=== PATIENT | female | born 1935 | race Caucasian/White ===

== ENCOUNTER 2017-08-14 14:53 | Emergency (ER) | payer OTHER ==
--- NOTE | 2017-08-14 15:03 | PDOC ---
History of Present Illness - General Stated Complaint: FALL Time Seen by Provider: 08/14/17 15:03 - History of Present Illness Initial Comments: 81 year old female with PMH of HTN and metastatic breast cancer (recently found in the liver) presenting with nose pain and bleeding after a fall from her chair. She says that she was playing solitaire on her computer and may have been feeling a little bit tired. The next thing she remembers is that she was falling from her chair and wasn't able to brace her fall to prevent herself from injuring her face. She felt a strange sensation at the bridge of her nose and immediately started bleeding. She isn't sure how she fell but denies any chest pain, palpitations, lightheadedness, nausea vomiting, diarrhea, urinary symptoms, or any other symptoms. 08/14/17 17:30 Past History - Past Medical History Allergies/Adverse Reactions: Allergies Allergy/AdvReac Type Severity Reaction Status Date / Time No Known Allergies Allergy Verified 08/14/17 15:26 Home Medications: Ambulatory Orders Amoxicillin/Potassium Clav [Augmentin 875-125 Tablet] 1 each PO BID #14 tablet 08/15/17 Review of Systems - Review of Systems Constitutional: No: Chills, Diaphoresis, Fever HEENTM: No: Blurred Vision Respiratory: No: Cough, Shortness of Breath, Hemoptysis Cardiac (ROS): No: Chest Pain, Edema, Lightheadedness, Syncope, Chest Tightness ABD/GI: No: Constipated, Diarrhea, Nausea, Vomiting : No: Burning, Dysuria, Discharge, Hematuria Musculoskeletal: Yes: Joint Pain. No: Back Pain, Muscle Weakness Integumentary: No: Bruising, Erythema, Flushing, Lesions Neurological: No: Headache, Numbness Psychiatric: No: Anxiety, Depression *Physical Exam - Physical Exam General Appearance: Yes: Nourished, Appropriately Dressed. No: Apparent Distress HEENT: positive: EOMI, JUAN, Lesions (obvious bruising around the area of abrasion), Tuttle. negative: Normal ENT Inspection (small abrasion across the nasal ridge wiuthout any foreign bodies or obvious osseous stucture protruding through the lesion. Most likely superficial. Slight depression with crepitus on the right superior aspect of the nasal ridge. No gross deformity of the nose.) Neck: positive: Trachea midline, Normal Thyroid, Supple. negative: Tender, Rigid Respiratory/Chest: positive: Lungs Clear, Normal Breath Sounds. negative: Chest Tender, Respiratory Distress, Accessory Muscle Use Cardiovascular: positive: Regular Rhythm, Regular Rate, S1, S2. negative: Edema , Murmur Gastrointestinal/Abdominal: positive: Normal Bowel Sounds, Flat, Soft. negative : Tender Musculoskeletal: positive: Normal Inspection. negative: CVA Tenderness Extremity: positive: Normal Capillary Refill, Normal Inspection. negative: Tender Integumentary: positive: Normal Color, Dry, Warm, Ecchymosis (Per above) Neurologic: positive: historical guide II-XII NML intact, Fully Oriented, Alert, Normal Mood/ Affect, Normal Response, Motor Strength 5/5 Procedures - Laceration/Wound Repair Right Nose Wound Length: to 2.5 cm Wound Explored: clean, no foreign body present Wound's Depth, Shape: superficial Irrigated w/ Saline: Yes Betadine Prep: No Wound Repaired With: Steri-strips Sterile Dressing Applied: No Splint Applied: No Progress: Superficial abrasion / partial laceration with echymosses and erythema. No swelling or obvious bone visualized through the wound. 08/16/17 07:27 ED Treatment Course - LABORATORY CBC & Chemistry Diagram: 08/14/17 15:55 08/14/17 15:55 Medical Decision Making - Medical Decision Making 81 year old female with PMH of metastatic breast cancer presenting with nasal deformity and abrasion after falling asleep at her desk and falling off of her chair. CT head was negative for any intracranial lesion or mass occupying lesion. Facial bone CT significant for fracture of the nasal septum and nasal bone tip but minimally displaced. Orbital sockets in tact. Abrasions cleaned, steri-stripped, and patient sent home with augmentin (one dose given here) and return precautions. 08/14/17 20:05 *DC/Admit/Observation/Transfer Diagnosis at time of Disposition: Nasal bone fracture Qualifiers: Encounter type: initial encounter Fracture type: closed Qualified Code(s): S02.2XXA - Fracture of nasal bones, initial encounter for closed fracture - Discharge Dispostion Disposition: HOME Condition at time of disposition: Improved Admit: No - Referrals Referrals: Jeannie Roque [Primary Care Provider] - - Patient Instructions Additional Instructions: You were seen for a fall on your face with an injury to your nose. Our CT scan showed a break of your nasal bone. There was no head bleed. Please follow up with your primary care physician within 2 days to have the nose looked at. Your steri-strips will fall off on their own. Please keep the area dry for 24 hours then you can start to clean it gently with warm water after that. If you have further nose bleeding please pinch the back of your nose and tilt your head forward. If you have any visual changes, worsening headache that does not resolve without Tylenol, uncontrollable nausea, uncontrollable vomiting, difficulty speaking, weakness in any of your limbs, excessive sleepiness, or any other concerning symptoms please return to the ED immediately.
[2017-08-14 15:28] VITALS: BMI 24.2
--- NOTE | 2017-08-14 15:56 | PDOC ---
Attending Attestation - Resident Resident Name: Henry Olivas - ED Attending Attestation I have performed the following: I have examined & evaluated the patient, The case was reviewed & discussed with the resident, I agree w/resident's findings & plan, Exceptions are as noted - HPI HPI: 08/14/17 17:50 81 years old with past medical history significant for metastatic lung CA presents to the emergency Department after sliding off a chair while seated at home playing a computer game landed face first sustaining injury to her nose. Patient denies taking any blood thinners. Complaining of pain to the bridge of her nose no other injuries sustained in fall pain is mild to moderate persistent constant no exacerbating or alleviating factors. - Physicial Exam PE: 08/14/17 17:51 Vitals: Triage Vital signs reviewed General Appearance: no acute distress, well nourished well developed, Head: Swelling and ecchymosis to bridge of nose small abrasion/laceration to bridge of nose. Eyes: Pupils equal reactive round, extraocular movement intact Ears: TM's normal bilaterally; Nose: Nares patent bilaterally;no nasal congestion Throat: Posterior oropharynx without erythema, mucous membranes moist, Neck: Supple;No Nucal rigidity Chest Wall: Nontender Cardiac: Regular rate and rhythym, no murmurs, no rubs, no gallops, Lungs: Clear to auscultation bilateral, good air movement bilaterally, Abdomen: Soft, non distended, normal bowel sounds, non tender to palpation Extremities: Full range of motion to all extremities, no cyanosis, clubbing, or edema Skin: Warm and dry, no rashes or lesions, no rash, no petechiae Neuro: AOX3; Cranial Nerves 2-12 grossly intact, Strength intact to all extremities, Sensation intact to all extremities,gait normal Psych: normal mood, normal affect - Medical Decision Making 08/14/17 17:50 She has a normal neurologic examination In the emergency department we have checked her blood work EKG a head CT and facial bone CT She has sustained a nasal bone fracture. Given a slight abrasion/laceration to the bridge of her nose she was placed on Augmentin. She is well-appearing lives [facility] a [facility] with other n[facility]. We advise observation. For the patient but she would prefer to return home she will follow-up with her doctor on Wednesday Strict head injury precautions discussed with patient. Patient is returning home to the [facility] where there is a nurse there to help care for her this evening. Findings, the need for follow-up and strict return instructions discussed with 08/14/17 20:32
[2017-08-14 16:11] LABS: BASOPHIL 0.4 % (0-2.0); EOSINOPHIL 0.5 % (0-4.5); MCH 30.7 pg (25.7-33.7); MCHC 33.8 g/dl (32.0-36.0); MEAN CELL VOLUME 90.9 fl (80-96); MEAN PLT VOLUME 8.5 fl (7.5-11.1); NEUTROPHILS 77.5 % (42.8-82.8); PLATELET COUNT 256 K/MM3 (134-434); RDW 13.9 % (11.6-15.6); WHITE BLOOD COUNT 7.2 K/mm3 (4.0-10.0)
[2017-08-14 16:35] LABS: ALBUMIN 3.9 g/dl (3.4-5.0); ANION GAP 8 (8-16); BILIRUBIN,TOTAL 0.6 mg/dL (0.2-1.0); CALCIUM 9.6 mg/dL (8.5-10.1); CO2 29 mmol/L (21-32); CREATININE 0.9 mg/dL (0.55-1.02); GLUCOSE,RANDOM 124 mg/dL (74-106); SGOT/AST 16 U/L (15-37); SGPT/ALT 22 U/L (12-78); TOT PROT 6.8 g/dl (6.4-8.2)
[2017-08-14 16:39] LABS: ALK PHOS 74 U/L (45-117); CPK 131 IU/L (26-192); TROPONIN I < 0.02 ng/ml (0.00-0.05)
[2017-08-14 18:18] LABS: URINE APPEARANCE CLEAR; URINE BILIRUBIN NEGATIVE (NEGATIVE); URINE BLOOD NEGATIVE (NEGATIVE); URINE COLOR YELLOW; URINE GLUCOSE (UA) 1+ (NEGATIVE); URINE KETONE NEGATIVE (NEGATIVE); URINE NITRITE NEGATIVE (NEGATIVE); URINE PROTEIN NEGATIVE (NEGATIVE); URINE UROBILINOGEN NEGATIVE mg/dL (0.2-1.0)
[2017-08-14] MEDS ORDERED: AMOX TR/POT CLAV 875MG/125MG TABLETS (FP) PO ONE (20:07)
[2017-08-14] MEDS ORDERED: AMOX TR/POT CLAV 875MG/125MG TABLETS (FP) ONE (20:37)
[2017-08-14 20:45] VITALS: BP 161/63; PULSE 91; TEMP 97.8
[2017-08-14 22:23] LABS: URINE LEUK ESTERASE TRACE (NEGATIVE)
--- NOTE | 2017-08-15 09:04 | EKG ---
Test Reason : Blood Pressure : / mmHG Vent. Rate : 087 BPM Atrial Rate : 087 BPM P-R Int : 170 ms QRS Dur : 094 ms QT Int : 368 ms P-R-T Axes : 044 038 066 degrees QTc Int : 442 ms POOR DATA QUALITY, INTERPRETATION MAY BE ADVERSELY AFFECTED NORMAL SINUS RHYTHM POSSIBLE LEFT ATRIAL ENLARGEMENT BORDERLINE ECG NO PREVIOUS ECGS AVAILABLE Confirmed by MARIANGEL SILVEIRA, TRICIA ([id number]) on 08/15/2017 9:03:58 AM Referred By: Confirmed By:TRICIA AUGUST MD
== END 2017-08-14 20:46 | disposition home or self-care (01) ==
LOC: JER 14:53
DX: S02.2XXA Fracture of nasal bones, initial encounter for closed fracture (principal); S00.31XA Abrasion of nose, initial encounter; W07.XXXA Fall from chair, initial encounter; Y93.C1 Activity, computer keyboarding; Y92.018 Other place in single-family (private) house as the place of occurrence of the external cause; Y99.8 Other external cause status; I10 Essential (primary) hypertension; C50.919 Malignant neoplasm of unspecified site of unspecified female breast; C78.7 Secondary malignant neoplasm of liver and intrahepatic bile duct; C78.00 Secondary malignant neoplasm of unspecified lung
CPT/HCPCS: 36415; 70450-TC; 70486-TC; 80053; 81003; 81015; 82550; 83735; 84484; 85025; 87086; 93005; 93010; 99282-25